=== PATIENT | female | born 1985 | race Hispanic/Latino ===

== ENCOUNTER 2016-11-22 18:46 | Emergency (ER) | payer SELFPAY ==
[2016-11-22 19:48] VITALS: BP 141/86
[2016-11-22 20:33] LABS: Bacteria,Urine 1+ /HPF (Negative); Bilirubin,Urine NEG (Negative); Blood,Urine NEG (Negative); Ketones,Urine NEG (Negative); Leukocyte Esterase,Urine LG (Negative); Mucus,Urine FEW /HPF; Nitrite,Urine NEG (Negative); Protein,Urine <15 mg/dL mg/dL (Negative); Urobilinogen,Urine < 2.0 mg/dL (<2.0)
[2016-11-22 20:41] LABS: Hematocrit 39.4 % (30.3-42.9); Hemoglobin 12.8 gm/dl (10.1-14.3); Mean Corpuscular Hemoglobin 26 pg (28-32); Mean Corpuscular Volume 80 fl (79-97); Red Blood Count 4.95 M/mm3 (3.65-5.03); White Blood Count 17.4 K/mm3 (4.5-11.0)
[2016-11-22 20:42] LABS: Basophils % (Auto) 0.5 % (0.0-1.8); Eosinophils % (Auto) 0.4 % (0.0-4.3); Mean Corpuscular HGB Conc 33 % (30-34); Mean Platelet Volume 8.7 fl (6-12); Platelet Count 238 K/mm3 (140-440); Red Cell Distribution Width 15.6 % (13.2-15.2)
[2016-11-22 20:56] LABS: Alanine Aminotransferase 12 units/L (7-56); Albumin 3.6 g/dL (3.9-5); Albumin/Globulin Ratio 1.1 %; Alkaline Phosphatase 69 units/L (35-129); Anion Gap 17 mmol/L; BUN/Creatinine Ratio 8.33; Blood Urea Nitrogen 5 mg/dL (7-17); Carbon Dioxide 25 mmol/L (22-30); Chloride 97.8 mmol/L (98-107); Glucose 93 mg/dL (65-100); Lipase 16 units/L (13-60); Potassium 3.8 mmol/L (3.6-5.0); Sodium 136 mmol/L (137-145); Total Protein 6.9 g/dL (6.3-8.2)
--- NOTE | 2016-11-24 00:21 | ED Elopement Review ---
ED Pt Elopement review - Results review Lab results: Laboratory Tests 11/22/16 11/22/16 11/22/16 20:10 20:18 20:18 WBC 17.4 H RBC 4.95 Hgb 12.8 Hct 39.4 MCV 80 MCH 26 L MCHC 33 RDW 15.6 H Plt Count 238 Lymph % (Auto) 13.5 [place] % (Auto) 3.0 Eos % (Auto) 0.4 Baso % (Auto) 0.5 Lymph # 2.3 Rush # 0.5 Eos # 0.1 Baso # 0.1 Seg Neutrophils % 82.6 H Seg Neutrophils # 14.4 H Sodium 136 L Potassium 3.8 Chloride 97.8 L Carbon Dioxide 25 Anion Gap 17 BUN 5 L Creatinine 0.6 L Estimated GFR > 60 BUN/Creatinine Ratio 8.33 Glucose 93 Calcium 9.0 Total Bilirubin 0.50 AST 16 ALT 12 Alkaline Phosphatase 69 Total Protein 6.9 Albumin 3.6 L Albumin/Globulin Ratio 1.1 Lipase 16 Urine Color Straw Urine Turbidity Clear Urine pH 6.0 Ur Specific [place] 1.006 Urine Protein <15 mg/dl Urine Glucose (UA) Neg Urine Ketones Neg Urine Blood Neg Urine Nitrite Neg Ur Reducing Substances Not Reportable Urine Bilirubin Neg Urine Ictotest Not Reportable Urine Urobilinogen < 2.0 Ur Leukocyte Esterase Lg Urine WBC (Auto) 4.0 Urine RBC (Auto) 3.0 U Epithel Cells (Auto) 4.0 Urine Bacteria (Auto) 1+ Urine Mucus Few Urine HCG, Qual Negative - Call Back decision Pt Call Back Decision: No action required
== END 2016-11-23 04:00 | disposition left against medical advice (07) ==
LOC: ED 18:46
DX: R10.30 Lower abdominal pain, unspecified (principal); N89.8 Other specified noninflammatory disorders of vagina; R11.0 Nausea; Z53.21 Procedure and treatment not carried out due to patient leaving prior to being seen by health care provider
CPT/HCPCS: 36415; 80053; 81001; 81025; 83690; 85025